=== PATIENT | male | born 1935 | race Asian ===

== ENCOUNTER 2017-01-07 06:18 | Day surgery (SDC) | payer OTHER ==
[~2017-01-07] VITALS: Ht 162.6 cm; Wt 65.0 kg
[~2017-01-07 06:18] MED LIST: ALBU8.5H IH; ASPI-1093 PO; ATOR40TA28 PO; CITA20TA9 PO; CLAR500T3 PO; D-ME118S13 PO; FAMO20 PO; FERR-89 PO; FLUT16H NASAL; FURO20 PO; GLIP10 PO; IPRA4AER IH; IPRNEB IH; LISI-662 PO; LORA10TA7 PO; MIRT15 PO; MOME13HF IH; MONT10TA21 PO; MULT-67 PO; PRED5 PO; SODIUM CHLORIDE 0.9% 1,000 ML IV ONE
[2017-01-07] MEDS ORDERED: SODIUM CHLORIDE 0.9% 1,000 ML IV ONE (06:34)
[2017-01-07] MEDS ORDERED: FentaNYL CITRATE-PF 100 MCG/2 ML VIAL ONE (07:08)
[2017-01-07] MEDS ORDERED: MIDAZOLAM HCL 2 MG/2 ML VIAL ONE (07:08)
[2017-01-07 07:47] LABS: GLUCOSE,POINT OF CARE 75 MG/DL (70-110)
[2017-01-07] MEDS ORDERED: MethylPREDNISolone SOD SUCC 125 MG/2 ML VIAL IVP ONE (08:45)
[2017-01-07] MEDS ORDERED: MethylPREDNISolone SOD SUCC 125 MG/2 ML VIAL ONE (08:56)
[2017-01-07] MEDS ORDERED: ALBUTEROL SULFATE 2.5 MG/0.5 ML NEB SOLUTION NEB ONE (17:33)
[2017-01-07] MEDS ORDERED: LIDOCAINE HCL 4% 50 ML SOLUTION TP ONE (17:33)
[2017-01-07] MEDS ORDERED: BENZOCAINE 20% 50 MCG/SPRAY 57 GM TP ONE (17:33)
[2017-01-07] MEDS ORDERED: EPINEPHrine 1:1,000 [1 MG/ML] AMP IM ONE (17:33)
[2017-01-07] MEDS ORDERED: LIDOCAINE HCL 2% 30 ML JELLY TP ONE (17:33)
[2017-01-07] MEDS ORDERED: OXYGEN THERAPY IH SCH (20:00)
== END 2017-01-07 10:05 | disposition home or self-care (01) ==
LOC: SURGERY 06:18
PROVIDERS: ATTEND Internal Medicine Critical Care Medicine
DX: J38.4 Edema of larynx (principal); B37.0 Candidal stomatitis
CPT/HCPCS: 31623; 31624; 71010; 82962; 87015; 87070; 87101; 87205; 87220; 93005; J0171; J2250; J2930; J3010; J7030; 87147; 88108; 88312